=== PATIENT | female | born 1935 | race Caucasian/White ===

== ENCOUNTER 2020-06-28 16:29 | Inpatient (IN) | payer MEDICARE ==
[~2020-06-28] VITALS: Ht 157.4 cm; Wt 81.8 kg
[2020-06-28] MEDS ORDERED: TYLENOL325 M1 PO (16:54)
[2020-06-28] MEDS ORDERED: ALLOPURINOL300 MG PO (16:55)
[2020-06-28] MEDS ORDERED: ASPIRIN ADULT L81 M1 PO (16:56)
[2020-06-28] MEDS ORDERED: LIPITOR80 MG PO (16:56)
[2020-06-28] MEDS ORDERED: NATURE'S BLEND500 M5 PO (16:58)
[2020-06-28] MEDS ORDERED: B-121000 MCG PO (16:59)
[2020-06-28] MEDS ORDERED: DEPAKOTE SPRIN125 MG PO (17:00)
[2020-06-28] MEDS ORDERED: COLACE100 MG PO (17:01)
[2020-06-28] MEDS ORDERED: LOVENOX30 MG/0.3 SC (17:02)
[2020-06-28] MEDS ORDERED: FEROSUL325 MG PO (17:03)
[2020-06-28] MEDS ORDERED: APRESOLINE10 MG PO (17:04)
[2020-06-28] MEDS ORDERED: ZESTRIL,PRINIVIL5 MG PO (17:05)
[2020-06-28] MEDS ORDERED: MILK OF MA400 MG/51 PO (17:06)
[2020-06-28] MEDS ORDERED: ZOFRAN4 MG IV (17:07)
[2020-06-28] MEDS ORDERED: LOPRESSOR50 M1 PO (17:07)
[2020-06-28] MEDS ORDERED: PROTONIX40 MG PO (17:08)
[2020-06-28] MEDS ORDERED: POTASSIUM CHLO20 ME4 PO (17:09)
[2020-06-28] MEDS ORDERED: PHENERGAN25 MG/1 ML IV (17:11)
[2020-06-28] MEDS ORDERED: RISPERDAL0.5 MG PO (17:11)
[2020-06-28] MEDS ORDERED: GEODON20 M1 IM (17:12)
[2020-06-28 20:00] VITALS: BP 154/56
--- NOTE | 2020-06-28 20:10 | NUR ---
ARISTIDES DAVIES a 85 year old F admitted via stretcher from the [facility] as a voluntary admission PER LEGAL GUARDIAN, NALINI BEDOYA, LEGAL GUARDIAN Arrived on unit at 1999. ALLERGIES: PCN, LASIX. Vital signs are: [id number] 154/56 CONSENT RECEIVED FOR ALL ADMISSION FORMS FROM LEGAL GUARDIAN, NALINI BEDOYA PRIOR TO ADMISSION; Authorization For The Release of Medical Information, Clothing List, Consent to Voluntary Admission and Hospitalization, Consent and Release Forms/Receipt of Rights, Acknowledgement of Advance Directive Information, Behavioral Health Consent Form, and Informed Consent of Medications. Admitted under the services of Dr. KISHOR MCQUEEN,[facility]. A search was conducted and hazardous articles were removed. Client WAS DROWSY & SEDATED ON ADMISSION DUE TO BEING MEDICATED WITH [facility] PRIOR TO TRANSFER FROM [facility]. INFORMATION OBTAINED FROM CHART RECORDS MARIA E TORRES
[2020-06-28 21:08] VITALS: BP 154/56
--- NOTE | 2020-06-28 21:52 | NUR ---
DR GAMEZ NOTIFIED OF MEDICAL CONSULT. CONSULT TO BE UNDER DR TORRES
--- NOTE | 2020-06-28 22:11 | NUR ---
DR WHALEN ON UNIT TO SEE PT FOR MEDICAL MANAGEMENT
--- NOTE | 2020-06-29 01:09 | NUR ---
PT VERY DROWSY DURING ADMISSION. WAS MEDICATED WITH [facility] AT [facility] PRIOR TO TRANSFER. PT ALERT TO PERSON ONLY. SPEECH GARBLED & SOFT. INFORMATION OBTAINED FROM CHART NOTES, UNABLE TO COMPLETE GERIATRIC DEPRESSION SCALE & MINI MENTAL ASSESSMENT. PT IS EXCORIATED TO PERINEAL & ANAL AREA WELL ABDOMINAL FOLDS. ALSO BILATERALLY UNDER BREASTS. PT REFUSED TO HAVE PICTURES DONE TO ALL AREAS.
--- NOTE | 2020-06-29 05:48 | NUR ---
DR GAMEZ NOTIFIED THAT PTS HOME MEDS NEED ORDERED
--- NOTE | 2020-06-29 06:07 | NUR ---
PT SLEPT 3-4 HOURS INTERMITTENTLY OF INTERUPTED SLEEP.
[2020-06-29 06:31] LABS: HEMATOCRIT 41.6 % (37.0-47.0); MEAN CELL VOLUME 92.2 fl (81.0-99.0); MEAN CORPUSCULAR HGB 27.5 pg (27.0-31.0); MEAN CORPUSCULAR HGB CONC 29.8 g/dl (33.0-37.0); MEAN PLATELET VOLUME 10.2 fl (9.6-12.3); PLATELET COUNT AUTOMATED 362 10*3/uL (130-400); RED BLOOD COUNT 4.51 10*6/uL (4.10-5.10)
[2020-06-29 06:49] LABS: ALBUMIN 3.1 gm/dl (3.1-4.5); ALKALINE PHOSPHATASE 74 U/L (45-117); BUN 12 mg/dl (7-24); CHLORIDE 111 mmol/L (98-107); CHOLESTEROL 180 mg/dL (<200); CREATININE 0.82 mg/dL (0.55-1.02); HDL CHOLESTEROL 42 mg/dl (40-60); LDL CHOLESTEROL 105 mg/dL (9-159); POTASSIUM 4.2 mmol/L (3.5-5.1); SGOT/AST 12 IU/L (3-35); SGPT/ALT 18 U/L (12-78); SODIUM 141 mmol/L (136-145); TRIGLYCERIDES 167 mg/dl (<150); VLDL CHOLESTEROL 33 mg/dL (6-40)
--- NOTE | 2020-06-29 08:03 | NUR ---
PHYSICAL THERAPY PT screen received pt admitted for brief psychotic disorder. Please consult PT if pt has functional decline below baseline. Efrem Dickerson SPT Madisyn Loera PT
[2020-06-29 08:17] LABS: ATYPICAL LYMPHS 2 % (0-0); BASOPHILS 1 % (0-1); PLATELET SUFFICIENCY NORMAL (NORMAL); TOTAL CELLS COUNTED 100 #CELLS
--- NOTE | 2020-06-29 08:43 | NUR ---
DR WARD ON UNIT TO ASSESS PT.
--- NOTE | 2020-06-29 09:12 | NUR ---
PT C/O RIB PAIN, UNABLE TO ELABORATE WHERE EXACTLY IT HURTS OR RATE ON A PAIN SCALE. PT MEDICATION WITH TYLENOL 650 MG PO PRN, PER ORDERS WILL CONTINUE TO MONITOR.
--- NOTE | 2020-06-29 09:12 | NUR ---
PATIENT COMPLAINING OF RIB PAIN, 0 TO 10, STATED "REAL BAD" PATIENT GUARDING HER RIGHT SIDE. PRN TYLENOL 650MG PO GIVEN AT THIS TIME.
--- NOTE | 2020-06-29 09:50 | NUR ---
Treatment team meeting this AM with Virginia Dong, biomedical equipment support specialist, RN, home health outreach coordinator, ELIDA and environmental restoration planner. This patient came in from [facility]; Aparna MARRERO stating that [facility] is involved, I will reach out to Catie. At this time it was discussed this patient will be referred to [facility] and tentative discharge date is unknown.
--- NOTE | 2020-06-29 10:15 | NUR ---
NO FURTHER C/O PAIN NOTED.
--- NOTE | 2020-06-29 11:30 | NUR ---
Contacted Catie Hobson from [facility]. She is stating they have been involved with this patient in the past but they do not have anything open for her at this time. This patient's daughter Cristina Baker is her Guardian. I was asked to make a referral for this patient to [facility], but at this time the patient is too new and there is not enough information in the chart to fax for a referral, there is not even an H&P. Notified Sandra MARRERO
--- NOTE | 2020-06-29 11:52 | NUR ---
Family meeting held via the phone with pt's guardian/daughter Cristina Baker. Cristina spoke of pt's behaviors which caused pt's [facility] admission. Provided support to Cristina as she expressed anxiety about pt. Discussed discharge plan. Cristina stated that she is unsure if she wants pt to discharge to [facility] or to [place]. Cristina is planning on touring [place] today. Await return call from Cristina.
--- NOTE | 2020-06-29 14:20 | NUR ---
NO ADVERSE MOODS OR BEHAVIORS NOTED AT THIS TIME. PT ALERT TO PERSON, PLACE-KNOWS SHE IS IN THE HOSPITAL DIFFERENT FROM [place], UNSURE OF NAME, AND TIME, PERIODS OF INTERMITTENT CONFUSION NOTED. PT MED COMPLIANT WITHOUT DIFFICULTY, MED EDUCATION PROVIDED. PT CALM, MOOD IS STABLE. NO HALLUCINATIONS OR DELUSIONS NOTED AT THIS TIME. PT DENIES ANY SUICIDAL THOUGHTS AT THIS TIME. PT UP TO A WHEELCHAIR, REQUIRES STANDBY ASSIST FOR TRANSFERS. PT CONTINENT OF BOWEL AND BLADDER. PLAN IS TO MONITOR PT BEHAVIORS ON Q15 MIN SAFETY CHECKS, ENCOURAGE MED COMPLIANCE AND PROVIDE MED EDUCATION, ENCOURAGE GROUP PARTICIPATION AND SOCIALZIATION, PROVIDE EMOTIONAL SUPPORT AND 1:1 FOR PT TO VOICE FEELINGS.
--- NOTE | 2020-06-29 14:40 | NUR ---
PT SITTING IN HER ROOM AND WHEN APPROACHED BY STAFF STATED "THERE IS SOMEONE COMING IN MY TO STEAL BY $285. STAFF PRESENTED REALITY AND RE-ORINETED PT AND PROCEEDED TO TAKE HER TO THE DINING ROOM FOR GROUP. ONCE IN THE DINING ROOM PT STATED "IT WAS MY DAUGHTER WHO STOLE MY MONEY, I'M GOING TO SKIN HER ALIVE." STAFF PROVIDED EMOTIONAL SUPPORT AND 1:1 FOR PT TO VOICE FEELINGS, PT BECOMING ARUGEMENTATIVE WITH STAFF. PT IN GROUP ROOM AT THIS TIME.
--- NOTE | 2020-06-29 15:34 | NUR ---
PM GROUP PT WAS PRESENT FOR AFTERNOON GROUP THERAPY BUT REFUSED ANY ACTIVITY OFFERED. PT WAS CONFUSED BELIEVING THAT SHE "HAD TO GET UP TO THE APARTMENT. NALINI HAS HER $200 CHECK AND IF SHE CASHED IT SHE'S IN FOR IT!" PT COULD NOT BE REDIRECTED AND WAS GIVEN SPACE TO CALM HERSELF.
--- NOTE | 2020-06-29 19:43 | NUR ---
24 HR chart check completed.
--- NOTE | 2020-06-29 23:09 | NUR ---
PT SAT IN THE DINING ROOM THIS EVENING IN A WHEELCHAIR. SHE HAS BEEN CO-OPERATIVE. ALERT & ORIENTED TO PERSON, SOMEWHAT PLACE, "IN A HOSPITAL SOMEWHERE" & TIME. CONFUSION IS PRESENT AT TIMES WITH MEMORY GAPS NOTED. PLEASANT INTERACTIONS WITH STAFF. NO AGITATION OR BEHAVIORS. NO DELUSIONS VOICED. DID NOT APPEAR TO BE RESPONDING TO SENSORY DISTURBANCE. SHE HAS BEEN CALM & STATED THAT SHE WANTS TO GO HOME & GO TO BED. ATE SNACK. COMPLIANT WITH MEDICATIONS. 2 STAFF ASSISTS FOR TRANSFER TO BED.
--- NOTE | 2020-06-30 01:30 | NUR ---
URINE OBTAINED & SENT TO LAB
[2020-06-30 01:47] LABS: BILIRUBIN NEGATIVE; BLOOD NEGATIVE (NEGATIVE); CLARITY CLOUDY (CLEAR); COLOR YELLOW (YELLOW); GLUCOSE NEGATIVE; KETONE NEGATIVE; LEUKO ESTERASE 3+ (NEGATIVE); NITRITE NEGATIVE (NEGATIVE); PH 5.5 (4.5-8.0)
[2020-06-30 01:49] LABS: BACTERIA 1+; WBC TNTC wbc/hpf (0-5)
--- NOTE | 2020-06-30 03:18 | NUR ---
PT WAS SLEEPING @ 2200. SHE HAS BEEN UP X2 TO GO TO THE BATHROOM WITH STAFF ASSISTANCE. CONTINENT OF URINE. PT DID NOT WANT TO RETURN TO BED. VOICED FRUSTRATION REGARDING HER MOTHER. UPSET THAT SHE WONT COME TO SEE HER. STATED, "SHE CHOOSES THE BOTTLE OVER ME. HOW CAN SHE DO THAT? WELL WHEN SHE DOES COME I'M JUST GONNA TELL HER TO LEAVE & GO BACK TO HER BOTTLE." STATED HER FATHER & BROTHERS ARE ALL . PT CONTINUED TO VOICE FRUSTRATION ABOUT HER MOTHER. ACTIVELY ANXIOUS. UPSET & CRYING. MEDICATED WITH ATIVAN 1 MG PO @ 0252. MOVED PT TO GROUP ROOM ACROSS FROM NURSES STATION AND ASSISTED TO A COUCH PER HER REQUEST.
--- NOTE | 2020-06-30 03:46 | NUR ---
PT WANTING TO RETURN TO HER BED. STATED THERE ARE "TOO MANY SNAKES IN HERE" PT RETURNED TO HER BED.
--- NOTE | 2020-06-30 05:53 | NUR ---
ATIVAN HAS BEEN EFFECTIVE TO CALM PT. SHE HAS SLEPT FOR A TOTAL OF 3 1/2 HOURS
[2020-06-30 06:53] VITALS: BP 130/69
--- NOTE | 2020-06-30 13:17 | NUR ---
DR IGLESIAS ON UNIT TO ASSESS PATIENT, UPDATE PROVIDED.
--- NOTE | 2020-06-30 14:36 | NUR ---
P: PATIENT IS CONFUSED, IRRITABLE, ANXIOUS, DEPRESSED, HOPELESS/HELPLESS AND EXPERIENCING VISUAL HALLUCINATIONS. I: PROVIDE ONE ON ONE FOR EMOTIONAL SUPPORT, PROVIDE SPACE NEEDED. ENCOURAGE PATIENT TO PARTICIPATE IN GROUP ACTIVITIES AND SOCIALIZATION WITH PEERS, ALSO ENCOURAGE MEDICATION COMPLIANCE. R: PATIENT IS ALERT TO SELF ONLY AT THIS TIME. PATIENT IS CONFUSED AND UNAWARE OF WHERE SHE IS. SHE IS IRRITABLE, ANXIOUS, DEPRESSED, AND HOPELESS/HELPLESS. PATIENT INTERACTS WITH STAFF TO A POINT, UNTIL REALITY IS PRESENTED. PATIENT IS NOT EASILY REDIRECTED. PATIENT IS PREOCCUPIED WITH THOUGHTS OF LEAVING TO GO PAY HER BILLS. PATIENT STATES "MY LIGHTS WILL BE SHUT OFF I AM LEAVING HERE TO WALK TO [facility] THE [facility]ONEY". PATIENT IS ALSO HAVING VISUAL HALLUCINATIONS, SHE STATES SHE IS SEEING CATS. PATIENT IS A ONE ASSIST WITH ACTIVITIES OF DAILY LIVING. PATIENT AMBULATES VIA WHEELCHAIR. SET UP FOR MEALS. INTAKES ARE FAIR WITH ADEQUATE FLUID INTAKE. P: MONITOR PATIENTS MOOD/BEHAVIORS. Q 15 MINUTE SAFETY CHECKS MAINTAINED. MONITOR FOR HALLUCINATIONS. ENCOURAGE GROUP ACTIVITY AND SOCIALIZATION WITH PEERS.
[2020-06-30 20:00] VITALS: BP 132/63
--- NOTE | 2020-06-30 23:01 | NUR ---
P-ISOLATIVE, CONFUSION, PREOCCUPIED I-REDIRECTION WITH 1:1 THERAPEUTIC INTERVENTIONS AND PRESENT REALITY. EDUCATE AND ENCOURAGE MEDICATION COMPLIANCE R-PATIENT MEDICATION COMPLIANT AT HS. PATIENT PROVIDED NOURSISHMENT AND FLUIDS AT HS. PATIENT INTERACTIVE IN DINING AREA AND TALKING WITH PEERS. PATIENT ATTEMPTING TO HAVE CONVERSATIONS WITH PEERS AND NURSING STAFF BUT PATIENT USING INAPPROPRIATE CONTENT TO CONVERSATION. PATIENT PREOCCUPIED WITH OTHER PATIENTS IN DINING AREA AND CONCERNED WITH WHAT NURSING STAFF WAS DOING IN DINING ROOM. PATIENT STATING "I DON'T FEEL GOOD". PATIENT WANTING TO WATCH TELEVISION IN DINING AREA UNTIL READY FOR BED. PATIENT WITH NO HOMICIDAL OR SUICIDAL IDEATIONS. P-CONTINUE TO ENCOURAGE MEDICATION COMPLIANCE, CONTINUE TO PRESENT REALITY, ENCOURAGE GROUP THERAPY WHILE AWAKE
--- NOTE | 2020-07-01 00:29 | NUR ---
PATIENT NOT WANTING TO STAY UP AT THIS TIME. PATIENT HALLUCINATING STATING "THERE ARE SNAKES OVER THERE". PATIENT ALSO SEEN TALKING TO UNSEEN OTHERS IN QUIET ROOM. PATIENT STATING "I JUST DON'T FEEL GOOD RIGHT NOW, I JUST NEED TO GO OUTSIDE TO GET AIR". MULTIPLE ATTEMPTS TO REDIRECT PATIENT AND REMIND PATIENT THAT SHE IS IN A HOSPITAL. PATIENT REDIRECTED WITH DIFFICULTY AT TIMES.
--- NOTE | 2020-07-01 02:15 | NUR ---
PATIENT CLIMBING OUT OF BED. PATIENT PULLING DOWN PANTS ON SIDE OF BED. PATIENT AGITATED WHEN ATTEMPTING TO PROVIDE CARE. PATIENT YELLING OUT "NALINI". PATIENT REDIRECTED AND PROVIDED A QUIET AREA TO DECREASE STIMULI. PATIENT [facility] AT THIS TIME
--- NOTE | 2020-07-01 03:35 | NUR ---
PATIENT MEDICATED WITH ATIVAN 1MG PO WITH SOMEWHAT EFFECTIVE RESULTS. PATIENT YELLING OUT FOR HER MOM AND DAD. ATTEMPTS TO REDIRECT PATIENT FROM YELLING OUT INEFFECTIVE. PATIENT STATING "I DON'T CARE WHO I WAKE UP". PATIENT ATTEMPTING TO GET UP ON OWN AND UNSTEADY. PATIENT AGITATED AND ARGUMENTATIVE WITH STAFF. ATIVAN SOMEWHAT EFFECTIVE AT THIS TIME. PATIENT TOILETED WITH ASSIST X 2-3.
--- NOTE | 2020-07-01 05:50 | NUR ---
PATIENT SLEPT 1-2 HOURS OF INTERRUPTED SLEEP THROUGHOUT SHIFT. Q 15 MINUTE CHECKS MAINTAINED. 24 HR chart check completed.
[2020-07-01 07:49] VITALS: BP 157/53
--- NOTE | 2020-07-01 09:31 | NUR ---
DR IGLESIAS ON UNIT TO ASSESS PT, UPDATE PROVIDED.
--- NOTE | 2020-07-01 14:51 | NUR ---
P: PT YELLING OUT INTERMITTENTLY. PT IRRITABLE WITH STAFF. PT OBSERVED TO BE RESPONDING TO UNSEEN OTHERS. PT ARUGEMNTATIVE AND ACCUSATORY WITH STAFF DURING CARE, STATING "WHY DID YOU BRING ME HERE?, JUST TO MISTREAT ME." I: PROVIDE EMOTIONAL SUPPORT AND 1:1 FOR PT TO VOICE FEELINGS, PROVIDE LOW STIMULATION ENVIRONMENT FOR PT TO CALM, PROVIDE EMOTIONAL SUPPORT AND 1:1 FOR PT TO VOICE FEELINGS, PROVIDE DIVERSIONAL ACTIVITIES R: PT ALERT TO PERSON, WHEN ASKED WHERE SHE WAS PT STATED "HERE", PT IS AWARE THE YEAR IS 2019, CONFUSION AND SHORT TERM MEMORY DEFICITS NOTED PER PT BASELINE. PT CALM, MOOD REMAINS IRRITABLE. PT CONTINUES TO ACCUSE STAFF, 2-3 STAFF PRESENT DURING CARE. PT UNRECEPTIVE TO PRESENTATION OF REALITY AND RE-ORIENTATION. PT DENIES ANY SUICIDAL THOUGHTS. PT UP TO A GERICHAIR AT THIS TIME, REQUIRING 1-2 STAFF ASSIST FOR TRANSFERS. P: MONITOR PT BEHAVIORS ON Q15 MIN SAFETY CHECKS, ENCOURAGE MED COMPLIANCE AND PROVIDE MED EDUCATION, PROVIDE DIVERSIONAL ACTIVITIES, PROVIDE EMOTIONAL SUPPORT AND 1:1 FOR PT TO VOICE FEELINGS, PRESENT REALITY AND RE-ORIENT NEEDED.
[2020-07-01 19:34] VITALS: BP 150/53
--- NOTE | 2020-07-01 21:52 | NUR ---
P-ISOLATIVE, CONFUSION I-REDIRECTION WITH 1:1 THERAPEUTIC INTERVENTIONS AND PRESENT REALITY. EDUCATE AND ENCOURAGE MEDICATION COMPLIANCE R-PATIENT MEDICATION COMPLIANT AT HS. PATIENT PROVIDED NOURSISHMENT AND FLUIDS AT HS. PATIENT INTERACTIVE IN DINING AREA AND TALKING WITH PEERS. PATIENT ATTEMPTING TO HAVE CONVERSATIONS WITH PEERS AND NURSING. PATIENT WITH NO HOMICIDAL OR SUICIDAL IDEATIONS. PATIENT WITH NO HALLUCINATIONS OR DELUSIONS. P-CONTINUE TO ENCOURAGE MEDICATION COMPLIANCE, CONTINUE TO PRESENT REALITY, ENCOURAGE GROUP THERAPY WHILE AWAKE
--- NOTE | 2020-07-02 05:58 | NUR ---
PATIENT SLEPT 8 HOURS OF UNINTERRUPTED SLEEP THROUGHOUT SHIFT. Q 15 MINUTE CHECKS MAINTAINED. 24 HR chart check completed.
[2020-07-02 07:55] VITALS: BP 143/59
--- NOTE | 2020-07-02 08:30 | NUR ---
Treatment Plan meeting was held this a.m. with Dr. Dickson, CHHAYA Coleman, RN, AT, NURSE'S AIDES TEACHER-S and Instrumentation Manager in attendance. Plan for discharge Next Week. Pt. most likely will require Placement. Will follow with family for Choice of Facilities.
--- NOTE | 2020-07-02 11:04 | NUR ---
DR IGLESIAS ON UNIT TO ASSESS PT. UPDATE PROVIDED.
--- NOTE | 2020-07-02 11:17 | NUR ---
Spoke with pt's daughter/guardian Cristina Rosalesro. Cristina stated that she has not yet made a decision about a [facility] for pt. She requested that this short story writer call her tomorrow to further discuss discharge plan.
--- NOTE | 2020-07-02 11:31 | NUR ---
AM GROUP PT WAS PRESENT FOR MORNING GROUP THERAPY AND PARTICIPATED BY SOCIALIZING WITH NURSING STUDENTS. PT WAS IN GOOD SPIRITS AND EXHIBITED NO ADVERSE BEHAVIORS WHILE IN GROUP.
--- NOTE | 2020-07-02 11:47 | NUR ---
PASRR submitted to prepare for discharge needs.
--- NOTE | 2020-07-02 15:34 | NUR ---
PM GROUP PT ATTENDED AFTERNOON GROUP THERAPY BUT CHOSE NOT TO PARTICIPATE STATING, "MY ARMS HURT TOO MUCH." PT WAS CONTENT TO WATCH PEERS AND NURSING STUDENTS PLAY YATZEE. PT EXHIBITED NO ADVERSE BEHAVIORS WHILE IN GROUP.
--- NOTE | 2020-07-02 16:12 | NUR ---
[facility] CALLED IN FOR ADDITIONAL INFORMATION, INFO PROVIDED.
--- NOTE | 2020-07-02 16:13 | NUR ---
Referral faxed to [facility] Attn: Lali.
--- NOTE | 2020-07-02 17:45 | NUR ---
IV REMOVED AT THIS TIME. PT TOLERATED WELL. PRESSURE DRESSING APPLIED.
--- NOTE | 2020-07-02 18:08 | NUR ---
P: PT ISOLATIVE TO SELF AT TIMES THROUGHTOUT THE DAY. PT IRRITABLE WITH STAFF. I: PROVIDE EMOTIONAL SUPPORT AND 1:1 FOR PT TO VOICE FEELINGS, ENCOURAGE MED COMPLIANCE AND PROVIDE MED EDUCATION, ENCOURAGE GROUP PARTICIPATION AND SOCIALIZATION R: PT ALERT TO PERSON AND PLACE ONLY. PT KNOWS SHE IS THE HOSPITAL BUT UNSURE OF WHERE. PT MED COMPLIANT WITHOUT DIFFICULTY, MED EDUCATION PROVIDED. PT CALM, REMAINS IRRITABLE AT TIMES. PT MINIMALLY PARTICIPATED IN GROUP THROUGHOUT THE DAY. NO HALLUCINATIONS OR DELUSIONS NOTED AT THIS TIME. PT DENIES ANY SUICIDAL THOUGHTS. PT UP TO A WHEELCHAIR, REQUIRES A 2 STAFF ASSIST FOR TRANSFERS AND CARE. PT CONTINENT OF BOWEL AND BLADDER, EPISODES OF INCONTINENCE NOTED, CARE PROVIDED NEEDED. P: PLAN IS TO MONITOR PT BEHAVIORS ON Q15 MIN SAFETY CHECKS, ENCOURAGE MED COMPLIANCE AND PROVIDE MED EDUCATION, ENCOURAGE GROUP PARTICIPATION AND SOCIALIZATION, PROVIDE EMOTIONAL SUPPORT AND 1:1 FOR PT TO VOICE FEELINGS.
[2020-07-02 19:04] VITALS: BP 141/64
--- NOTE | 2020-07-02 23:59 | NUR ---
PP--ISOLATIVE AT TIMES, LABILE MOOD I--REVIEWED MEDICATION DISCUSSED THE DAY. SNACK AND FLUIDS PROVIDED BY MENTAL HEALTH WORKER. R--OH WE HAD A GREAT DAY. (RUSHING SPEECH AND SLURRING PART OF IT) DISCUSS SEEING A DOG AND CAT GO OUT THE DOOR AND TO THE TUNNE. DO YOU WANT TO HERE A JOKE? INAPPROPRIATE JOKE GIVEN. REDIRECTED WELL. P--MONITOR FOR CHANGES IN MOOD/BEHAVIOR AND Q 15 MINS AND PRN FOR SAFETY
--- NOTE | 2020-07-03 05:03 | NUR ---
SLEPT WELL PAST 2230PM 24 HR chart check completed.
[2020-07-03 07:44] VITALS: BP 118/62
--- NOTE | 2020-07-03 08:00 | NUR ---
Discharge Plans discussed Prior to Manager R D Arrival to the Unit. Pt. will require Placement. Referral faxed to [facility] Thursday. Will Follow with Facility today.
--- NOTE | 2020-07-03 10:31 | NUR ---
DR IGLESIAS ON UNIT TO ASSESS PT, UPDATE PROVIDED.
--- NOTE | 2020-07-03 11:41 | NUR ---
AM GROUP PT ATTENDED MORNING GROUP THERAPY BUT CHOOSES NOT TO PARTICIPATE IN ANY ACTIVITY OFFERED. PT IS CONTENT TO SIT AND OBSERVE. PT CONVERSES WITH PEERS AND THIS DEVELOPMENT COACH APPROPRIATELY BUT WITH CONFUSION TO WHERE SHE IS AND SITUATION. PT EXHIBITED NO ADVERSE BEHAVIORS WHILE IN GROUP.
--- NOTE | 2020-07-03 12:33 | NUR ---
P: PT ISOLATIVE TO SELF AT TIMES THROUGH OUT THE DAY. PT REFUSES TO PARTICIPATE IN GROUP/ACTIVITES. I: PROVIDE EMOTIONAL SUPPORT AND 1:1 FOR PT TO VOICE FEELINGS, ENCOURAGE MED COMPLIANCE AND PROVIDE MED EDUCATION, ENCOURAGE GROUP PARTICIPATION AND SOCIALIZATION R: PT ALERT TO PERSON, KNOWS SHE IS IN THE HOSPITAL, BUT UNSURE OF WHERE OR WHY, AND KNOWS THE YEAR BUT NOT THE DATE. PT MED COMPLIANT WITHOUT DIFFICULTY, MED EDUCATION PROVIDED. PT CALM, MOOD IS STABLE. PT DENIES FEELING SAD, DEPRESSED OR ANXIOUS. PT CONTINUES TO REFUSE TO PARTICIPATE IN GROUPS/ACTIVITIES. PT DENIES ANY HALLUCINATIONS OR DELUSIONS, NO OVERT S/S NOTED. PT DENIES ANY SUICIDAL THOUGHTS. PT UP TO A WHEELCHAIR, REQUIRES 1 STAFF ASSIST FOR TRANSFERS AND CARE. PT CONTINENT OF BOWEL AND BLADDER. P: MONITOR PT BEHAVIORS ON Q15 MIN SAFETY CHECKS, ENCOURAGE MED COMPLIANCE AND PROVIDE MED EDUCATION, ENCOURAGE GROUP PARTICIPATION AND SOCIALIZATION, PROVIDE EMOTIONAL SUPPORT AND 1:1 FOR PT TO VOICE FEELINGS.
--- NOTE | 2020-07-03 15:42 | NUR ---
PM GROUP PT ATTENDED AFTERNOON GROUP THERAPY AND PARTICIPATED BY COLORING AND SOCIALIZING. PT IS PLEASANTLY CONFUSED BUT USES INAPPROPRIATE LANGUAGE/JOKES. PT MEANS NO HARM BUT DOESN'T UNDERSTAND THAT IT MAY BE OFFENSIVE TO OTHERS. PT EXPRESSED NO PARANOIA OR HALLUCINATIONS WHILE IN GROUP.
[2020-07-03 19:55] VITALS: BP 115/85
--- NOTE | 2020-07-03 21:04 | NUR ---
24 HR chart check completed.
--- NOTE | 2020-07-03 23:44 | NUR ---
P-CONFUSION, MEMORY GAPS I-PROVIDE EMOTIONAL SUPPORT, REORIENT NEEDED, ADMINISTER MEDICATIONS, MONITOR SLEEP R-PT SAT IN THE DINING ROOM THIS EVENING IN A WHEELCHAIR. SHE HAS BEEN SOCIALIZING APPROPIATELY TO A SELECT FEMALE PEER. PLEASANT INTERACTIONS WITH STAFF & PEERS. CO-OPERATIVE. ALERT & ORIENTED TO PERSON, SOMEWHAT PLACE, "IN A HOSPITAL SOMEWHERE I GUESS." CONFUSION IS PRESENT WITH MEMORY GAPS NOTED. NO AGITATION OR BEHAVIORS. NO DELUSIONS VOICED. NO SENSORY DISTURBANCE. ATE SNACK. COMPLIANT WITH MEDICATIONS. 2 STAFF ASSISTS FOR TRANSFER TO BED. SHE DID REQUEST & WAS MEDICATED WITH 2 TYLENOL FOR C/O RIGHT HAND PAIN. RATED 4/10 DID STATE IT HELPS A LITTLE BIT. P-CONTINUE TO MONITOR.
--- NOTE | 2020-07-04 00:43 | NUR ---
PT AWAKE AT THIS TIME. SITTING ON THE EDGE OF THE BED. UPSET & ANXIOUS. STATED SHE WOKE UP & THOUGHT SHE SAW A MAN IN HER ROOM. REASSURANCE PROVIDED. INFORMED PT THAT STAFF MAKES FREQUENT ROUNDS TO CHECK ON THEM & SHE STATED UNDERSTANDING. CALMED WITH VERBAL INTERVENTION.
--- NOTE | 2020-07-04 05:36 | NUR ---
PT HAS HAD INTERMITTENT SLEEP TOTALING APPX 4 HOURS SLEEP ALTOGETHER
[2020-07-04 07:53] VITALS: BP 153/69
--- NOTE | 2020-07-04 08:30 | NUR ---
Treatment Plan meeting was held this a.m. with Dr. Dickson via telephone, SUPERVISOR [employer] [place], RN, AT, POST TENSIONING IRONWORKER HELPER-S and Merchandiser Retail Representative in attendance. Plan for discharge Next week. Pt. came to [facility] from Home. Requires Placement. Accepted at [facility]. Daughter would like referral also sent to [facility].
--- NOTE | 2020-07-04 09:44 | NUR ---
Spoke with pt's daughter Cristina Baker about pt's discharge plan. Cristina would like a referral to [facility]. If pt is not accepted there, Cristina's second choice is [facility]. Notified production planner of this.
--- NOTE | 2020-07-04 10:43 | NUR ---
DR. IGLESIAS ON UNIT TO ASSESS PT, NOTIFIED OF C/O LOWER ABDOMINAL PAIN PER DR. KELSIE MOSES.
--- NOTE | 2020-07-04 11:33 | NUR ---
DR. IGLESIAS ON UNIT TO ASSESS PT, UPDATE PROVIDED.
--- NOTE | 2020-07-04 11:39 | NUR ---
AM GROUP PT WAS PRESENT FOR MORNING GROUP THERAPY AND PARTICIPATED BY COLORING AND SOCIALIZING WITH PEERS. PT WAS CALM AND EXPRESSED NO DELUSIONS OR AGITATION WHILE IN GROUP.
--- NOTE | 2020-07-04 12:10 | NUR ---
Clinical Updates faxed to [facility] Attn: Lali and Referral Faxed to [facility] at family request.
--- NOTE | 2020-07-04 15:50 | NUR ---
P-DEMANDING, CONFUSED. SHORT-TERM DEFICITS APPARENT. I-PT REDIRECTED, REORIENTED, PROVIDED 1:1 EMOTIONAL SUPPORT NEEDED. MEDICATION ADMINISTERED ORDERED. R-PT REDIRECTABLE, SOMEWHAT AGITATED STATING, "THESE DOORS ARE LOCKED MY FOOT." ACCEPTED REORIENTATION OF PLACE. MEDICATION COMPLIANT. P-WILL CONTINUE TO REOPRIENT APPROPRIATE, REDIRECT, AND PROVIDE EMOTIONAL SUPPORT NEEDED. CONTINUE CURRENT TREATMENT PLAN. WILL CONTINUE TO MONITOR Q15 MIN PER POLICY FOR SAFETY.
--- NOTE | 2020-07-04 15:54 | NUR ---
PM GROUP PT WAS PRESENT FOR AFTERNOON GROUP THERAPY SITTING AT THE BACK OF THE ROOM IN A COMFY CHAIR SLEEPING. PT WOKE A FEW TIMES BUT WENT RIGHT BACK TO SLEEP.
--- NOTE | 2020-07-04 16:19 | NUR ---
Received Word from Masha Dickson at [facility] that Pt. is not appropriate for their Facility.
--- NOTE | 2020-07-04 19:50 | NUR ---
24 HR chart check completed.
[2020-07-04 20:00] VITALS: BP 126/50
--- NOTE | 2020-07-04 21:01 | NUR ---
P-CONFUSION, MEMORY GAPS I-PROVIDE EMOTIONAL SUPPORT, REORIENT NEEDED, ADMINISTER MEDICATIONS, MONITOR SLEEP R-PT SAT IN THE DINING ROOM THIS EVENING IN A WHEELCHAIR. SOCIALIZING APPROPIATELY TO A SELECT PEER. PLEASANT WITH STAFF. ALERT & ORIENTED TO PERSON, SOMEWHAT PLACE, IN A HOSPITAL, YEAR IS 2019 & LISE IS THE PRESIDENT. MEMORY GAPS NOTED. NO AGITATION OR BEHAVIORS. NO DELUSIONS VOICED. NO SENSORY DISTURBANCE. ATE SNACK. COMPLIANT WITH MEDICATIONS. 2 STAFF ASSISTS FOR TRANSFER TO BED. DID STATE IT HELPS A LITTLE BIT. P-CONTINUE TO MONITOR.
--- NOTE | 2020-07-05 00:27 | NUR ---
PT HAS BEEN RESTING IN BED. WHEN STAFF WENT IN HER ROOM TO DO ROUTINE ROUNDS, SHE SCREAMED OUT LOUD. STATED THAT SHE WAS SCARED & WANTED TO GO OUTSIDE & GET SOME AIR & GET OUT OF HERE & GO HOME. UNRECEPTIVE TO REALITY PRESENTATION. ARGUMENTATIVE & SARCASTIC. MEDICATED WITH ATIVAN 1 MG PO @ 0004
--- NOTE | 2020-07-05 05:30 | NUR ---
ATIVAN HAS BEEN EFFECTIVE & PT HAS SLEPT PAST 0145 FOR APPROX 3 HOURS
[2020-07-05 07:49] VITALS: BP 130/56
--- NOTE | 2020-07-05 08:32 | NUR ---
PRN TYLENOL 650MG GIVEN PER ORDERS FOR C/O LOW BACK PAIN RATED 5/10.
--- NOTE | 2020-07-05 09:07 | NUR ---
S[place]IN [place], LOSS PREVENTION ASSOCIATE UP ON UNIT TO ASSESS PT, UPDATE PROVIDED.
--- NOTE | 2020-07-05 09:32 | NUR ---
PRN TYLENOL EFFETIVE PAIN RATED 0/10.
--- NOTE | 2020-07-05 10:52 | NUR ---
Treatment Plan meeting was held this a.m. with Dr. Dickson, RN, AT and Endband Sizer. Plan for discharge Next Week. Pt. is accepted at [facility].
--- NOTE | 2020-07-05 11:40 | NUR ---
AM GROUP PT WAS PRESENT FOR MORNING GROUP THERAPY SITTING IN A WHEELCHAIR NAPPING. PT IS OFFERED MANY ACTIVITIES BUT DECLINES ALL. PT IS VERY CONFUSED AND ANGRY WITH HER DAUGHTER, NALINI.
--- NOTE | 2020-07-05 14:04 | NUR ---
PT ALERT AND ORIENTED X4 WITH INTERMITTENT CONFUSION. UP IN W/C ATTENDING GROUP THERAPY AT THIS TIME. MEDICAITON COMPLIANT. MOOD STABLE. DENIES AH/VH AND SI/HI OR BEING DEPRESSED. MEDICATED WITH TYLENOL FOR PAIN. MEDICATION COMPLIANT. Q15 MIN CHECKS. 1 ASSIST WITH ADLS. CONTINENT OF BOWEL AND BLADDER. UP FOR MEALS ADEQUATE INTAKE AND FLUIDS. INTERACTIVE WITH STAFF AND OTHER PTS. PARTICIPATES IN GROUP. WILL CONTINUE TO MONITOR FOR AGGRESSION, PARANOIA, AND BEING ACUSATORY OF STAFF DURING CARE. WILL PROVIDE 1:1, REDIRECTION, REORIENTATION AND ENCOURAGE GROUP PARTICIPATION.
--- NOTE | 2020-07-05 14:46 | NUR ---
Pt was pleasant this AM during a group discussion about the benefits of having pets. Pt shared about her love of dogs and reminisced about dogs that she once had. Pt was interactive with her peers. Slight confusion was noted in pt at times during her conversation.
--- NOTE | 2020-07-05 15:37 | NUR ---
PM GROUP PT WAS PRESENT FOR AFTERNOON GROUP THERAPY AND PARTICIPATED BY SOCIALIZING AND LISTENING TO MUSIC. PT IS PLEASANTLY CONFUSED THIS AFTERNOON BUT EXHIBITED NO AGITATION OR AGGRESSION WHILE IN GROUP.
--- NOTE | 2020-07-05 16:20 | NUR ---
Shift chart check completed.
[2020-07-05 19:31] VITALS: BP 136/58
--- NOTE | 2020-07-05 23:37 | NUR ---
P-ISOLATIVE, CONFUSION I-REDIRECTION WITH 1:1 THERAPEUTIC INTERVENTIONS AND PRESENT REALITY. EDUCATE AND ENCOURAGE MEDICATION COMPLIANCE R-PATIENT MEDICATION COMPLIANT AT HS. PATIENT REFUSED NOURISHMENT BUT FLUIDS AT HS. PATIENT INTERACTIVE IN DINING AREA AND TALKING WITH PEERS AND NURSING STAFF. PATIENT WITH NO HOMICIDAL OR SUICIDAL IDEATIONS. PATIENT WITH NO HALLUCINATIONS OR DELUSIONS. P-CONTINUE TO ENCOURAGE MEDICATION COMPLIANCE, CONTINUE TO PRESENT REALITY, ENCOURAGE GROUP THERAPY WHILE AWAKE
--- NOTE | 2020-07-06 06:27 | NUR ---
PATIENT SLEPT 7-8 HOURS OF UNINTERRUPTED SLEEP THROUGHOUT SHIFT. Q 15 MINUTE CHECKS MAINTAINED. 24 HR chart check completed.
--- NOTE | 2020-07-06 07:40 | NUR ---
Patient eating breakfast in dining room with peers. Respirations easy and regular. Vital signs stable. No overt distress. NICKI ORNELAS
[2020-07-06 07:43] VITALS: BP 115/56
--- NOTE | 2020-07-06 08:30 | NUR ---
Treatment Plan meeting was held this a.m. with Dr. Dickson via telephone, CHHAYA Coleman RN, FLAME CUTTING SUPERVISOR-S and Ground Instructor Basic in attendance. Plan for discharge Next week. Pt. accepted at [facility].
--- NOTE | 2020-07-06 12:15 | NUR ---
SACHIN HILL NP ON UNIT TO ASSESS PT.
--- NOTE | 2020-07-06 14:03 | NUR ---
Spoke with Lali Baeza at [facility]. Pt. will need to discharge Next week prior to due to Bed Hold. Clinical Updates faxed to facility.
--- NOTE | 2020-07-06 16:22 | NUR ---
Shift chart check completed.
--- NOTE | 2020-07-06 19:08 | NUR ---
PT ALERT AND ORIENTED TO PERSON, PLACE AND TIME. MOOD STABLE. UP FOR MEALS AND ACTIVITIES. NO BEHAVIORS NOTED.
[2020-07-06 20:00] VITALS: BP 143/51
--- NOTE | 2020-07-06 23:42 | NUR ---
P-ISOLATIVE, CONFUSION, PREOCCUPIED I-REDIRECTION WITH 1:1 THERAPEUTIC INTERVENTIONS AND PRESENT REALITY. EDUCATE AND ENCOURAGE MEDICATION COMPLIANCE R-PATIENT MEDICATION COMPLIANT AT HS. PATIENT PROVIDED NOURISHMENT AND FLUIDS AT HS. PATIENT MINIMAL INTERACTION IN DINING AREA WITH PEERS AND NURSING STAFF. PATIENT PREOCCUPIED WITH MEDICATIONS AT HS. MEDICATION EDUCATION PROVIDED TO PATIENT. PATIENT WITH NO HOMICIDAL OR SUICIDAL IDEATIONS. PATIENT WITH NO HALLUCINATIONS OR DELUSIONS. P-CONTINUE TO ENCOURAGE MEDICATION COMPLIANCE, CONTINUE TO PRESENT REALITY, ENCOURAGE GROUP THERAPY WHILE AWAKE
--- NOTE | 2020-07-07 06:46 | NUR ---
PATIENT SLEPT 6 HOURS OF UNINTERRUPTED SLEEP THROUGHOUT SHIFT. Q 15 MINUTE CHECKS MAINTAINED. 24 HR chart check completed.
[2020-07-07 08:25] VITALS: BP 151/51
--- NOTE | 2020-07-07 08:54 | NUR ---
Edward JOSE R-FELIX on unit to see patient at this time.
--- NOTE | 2020-07-07 15:27 | NUR ---
P- Pleasantly confused, slightly preoccupied with medications, memory gaps noted. I- Orientation, mood and behaviors assessed. Assessed pt for SI/HI, intent or plan. Assessed pt for s/s hallucinations, paranoia and/or delusions. Medications administered as per physician's orders. Assistance with ADL care provided as needed. Encouraged pt to attend and participate in collado milieu groups & activities. R- Pt is alert and oriented to person, approximate place and year. Mild confusion and memory gaps noted. Mood appears stable with appropriate affect. Speech is WNL and coherent, able to make needs known without difficulty. Pt denies SI/HI, intent or plan. Pt denies hallucinations, no response to internal stimuli noted. No paranoia or delusions noted. Pt remains slightly preoccupied with her medications. Redirection and education provided regarding medications and recieved well by pt. Pt is calm, pleasant and cooperative. No aggressive behaviors. No distress noted. P- Plan to continue current treatment, provide appropriate reorientation and redirection as needed. Continue to encourage medication compliance as well as group attendance and participation.
[2020-07-07 20:00] VITALS: BP 136/76
--- NOTE | 2020-07-07 23:06 | NUR ---
P-CONFUSION, MEMORY GAPS I-PROVIDE EMOTIONAL SUPPORT, REORIENT NEEDED, ADMINISTER MEDICATIONS, MONITOR SLEEP R-PT SAT IN THE DINING ROOM THIS EVENING IN A WHEELCHAIR. PLEASANT INTERACTIONS. ALERT & ORIENTED TO PERSON, STATES SHE IS IN A HOSPITAL SOMEWHERE. YEAR IS 2019 & LISE IS THE PRESIDENT. MEMORY GAPS NOTED. NO AGITATION OR BEHAVIORS. NO DELUSIONS VOICED. NO SENSORY DISTURBANCE. ATE SNACK. COMPLIANT WITH MEDICATIONS. 2 STAFF ASSISTS FOR TRANSFER TO BED. P-CONTINUE TO MONITOR.
--- NOTE | 2020-07-08 00:23 | NUR ---
24 HR chart check completed.
--- NOTE | 2020-07-08 02:15 | NUR ---
RESTLESS, TALKING ABOUT NOT BEING DRUNK, ORIENTED TO PERSON, PLACE, UP TO KIM CHAIR AND BROUGHT DOWN TO QUIET ROOM. YELLING STOPPED AFTER GETTING HER IN CHAIR. WILL CONTINUE TO MONITOR FOR CHANGES IN MOOD/BEHAVIOR
--- NOTE | 2020-07-08 05:40 | NUR ---
PT HAS BEEN RESTLESS & SLEPT ONLY 3 & A HALF HOURS
[2020-07-08 07:22] VITALS: BP 159/56
--- NOTE | 2020-07-08 18:11 | NUR ---
PT TEARFUL AND YELLING OUT. THIS NURSE ASKED PT WHAT WAS WRONG AND SHE SAID THAT SHE DIDNT FEEL WELL. VS WNL. PT ASKED FOR SOUP AND BREAD AND THIS NURSE CALLED TO ORDER IT. PT CONTINUED YELLING OUT AND STATING SHE IS GOING FOR A WALK. THIS NURSE EXPLAINED TO PT SHE WAS UNSTEADY AND COULD POTENTIALLY FALL. PRN ATIVAN GIVEN TO PT TO CALM PT DOWN. WILL MONITOR EFFECTIVENESS OF MEDICATION.
[2020-07-08 20:00] VITALS: BP 148/65
--- NOTE | 2020-07-09 01:12 | NUR ---
24 HR chart check completed.
--- NOTE | 2020-07-09 02:34 | NUR ---
P-CONFUSION, MEMORY GAPS I-PROVIDE EMOTIONAL SUPPORT, REORIENT NEEDED, ADMINISTER MEDICATIONS, MONITOR SLEEP R-ALERT & ORIENTED TO PERSON, STATES SHE IS IN A HOSPITAL. DOESNT KNOW THE YEAR OR THE PRESIDENT. STATED "I DON'T CARE EITHER". DISPLAYED SOME ATTENTION SEEKING BEHAVIOR THIS EVENING. INFORMED STAFF THAT SHE WAS GOING TO GET UP & GO TO THE BATHROOM BY HERSELF DESPITE REDIRECTION. HEARD TALKING TO HER SELF IN HER ROOM & LAUGHING AFTER NAMING SOMEONE A "KNUCKLEHEAD". MEMORY GAPS NOTED. COMPLIANT WITH MEDICATIONS. 1 STAFF ASSIST FOR TRANSFER TO BED & TOILETING P-CONTINUE TO MONITOR.
--- NOTE | 2020-07-09 06:50 | NUR ---
PT HAS SLEPT PAST 2300 WITH 2 BRIEF TO GO TO THE BATHROOM. CONTINENT OF URINE
[2020-07-09 08:00] VITALS: BP 128/72
--- NOTE | 2020-07-09 08:00 | NUR ---
Patient eating breakfast in dining area with peers, with no c/o discomfort. Respirations easy and regular. Vital signs stable. No overt distress. MADY HILARIO
--- NOTE | 2020-07-09 08:30 | NUR ---
DR. WARD ON UNIT TO ASSESS PATIENT.
--- NOTE | 2020-07-09 09:00 | NUR ---
Treatment Plan meeting was held this a.m. with Dr. Dickson, CHHAYA Coleman, RN, AT, CONSTRUCTION SPECIALIST-S and Envelope Addresser in attendance. Plan for discharge Thursday. Pt. is accepted at [facility].
--- NOTE | 2020-07-09 12:52 | NUR ---
Spoke with Lali Baeza at [facility]. Provided with updates and discharge Plan for Thursday. Clinical Updates faxed to facility .
--- NOTE | 2020-07-09 13:05 | NUR ---
pt is pleasant and fully cooperate with assessment this shift. pt showered this morning x 2 assist. pt states she slept "so good" and appetite is good per records. pt smiling, laughing with staff, observed to be getting her nails painted. pt talking about activities of interest such as shopping and drinking coffee. pt also recalls speaking with PCP regarding reddened areas under breasts, states "my doctor told me to put good old flour under there and boy did it help!" pt has been continent of bowel and bladder, noted to have extra large BM this shift. pt offers no complaints at this time. pt is sitting in wheel chair in dining room with peers watching a movie. q15 min monitoring for safety continues.
--- NOTE | 2020-07-09 15:39 | NUR ---
PM GROUP PT WAS PRESENT FOR AFTERNOON GROUP THERAPY SITTING IN A WHEELCHAIR SLEEPING. PT WOKE ONCE AND ASKED FOR A PIECE OF CANDY AND THEN WENT RIGHT BACK TO SLEEP
--- NOTE | 2020-07-09 18:38 | NUR ---
Shift chart check completed.
--- NOTE | 2020-07-09 19:48 | NUR ---
24 HR chart check completed.
[2020-07-09 20:00] VITALS: BP 158/68
--- NOTE | 2020-07-09 21:54 | NUR ---
P-CONFUSION, MEMORY GAPS I-PROVIDE EMOTIONAL SUPPORT, REORIENT NEEDED, ADMINISTER MEDICATIONS, MONITOR SLEEP R-ALERT & ORIENTED TO PERSON, STATES SHE IS IN A HOSPITAL SOMEWHERE, YEAR IS 2019 & PRESIDENT IS LISE. PLEASANT THIS EVENING. MEMORY GAPS NOTED. PT STATED SHE IS FEELING "JUST FINE. BUT I'M TIRED TONIGHT". COMPLIANT WITH MEDS. 1 STAFF ASSIST FOR TRANSFER TO BED & TOILETING P-CONTINUE TO MONITOR.
--- NOTE | 2020-07-10 05:16 | NUR ---
PT HAS SLEPT APPROX 3 HOURS THIS THIS. NOTED TO TALK IN HER SLEEP INTERMITTENTLY.
[2020-07-10 07:58] VITALS: BP 152/60
--- NOTE | 2020-07-10 08:30 | NUR ---
Treatment Plan meeting was held this a.m. with Dr. Dickson via telephone, DRY HOUSE OPERATOR [place], RN, AT, LIEUTENANT GENERAL-S and Tissue Specialist in attendance. Plan for discharge today. Pt. is accepted to [facility]. Transportation arranged with [facility] to Transport with Market Development Trainer time 1:00 p.m.
--- NOTE | 2020-07-10 08:32 | NUR ---
DR WARD ON UNIT TO ASSESS PATIENT, UPDATE PROVIDED.
[2020-07-10] MEDS ORDERED: MEMANTINE HCL10 MG PO (09:34)
[2020-07-10] MEDS ORDERED: RISPERIDONE0.5 MG PO (09:34)
[2020-07-10] MEDS ORDERED: DULOXETINE HCL30 MG PO (09:34)
[2020-07-10] MEDS ORDERED: VITAMIN D3125 MC1 PO (09:34)
--- NOTE | 2020-07-10 11:12 | NUR ---
SPOKE TO DR HYDE TO HAVE MEDICAL MED PRESCRIPTIONS PRINTED PATIENT IS BEING DISCHARGED TODAY.
[2020-07-10] MEDS ORDERED: ZESTRIL,PRINIVIL5 MG PO (11:19)
[2020-07-10] MEDS ORDERED: LOPRESSOR50 M1 PO (11:19)
[2020-07-10] MEDS ORDERED: ALLOPURINOL300 MG PO (11:19)
[2020-07-10] MEDS ORDERED: B-121000 MCG PO (11:19)
[2020-07-10] MEDS ORDERED: LIPITOR80 MG PO (11:19)
[2020-07-10] MEDS ORDERED: FEROSUL325 MG PO (11:19)
[2020-07-10] MEDS ORDERED: ASPIRIN ADULT L81 M1 PO (11:19)
[2020-07-10] MEDS ORDERED: PROTONIX40 MG PO (11:19)
--- NOTE | 2020-07-10 11:50 | NUR ---
AM GROUP PT ATTENDED MORNING GROUP THERAPY AND PARTICIPATED BY SITTING AT A TABLE WITH PEERS AND SOCIALIZING. PT WAS CALM AND CONTENT AND EXHIBITED NO ADVERSE BEHAVIORS WHILE IN GROUP. PT IS EXPECTED TO BE DISCHARGED FROM THE UNIT THIS AFTERNOON.
--- NOTE | 2020-07-10 12:02 | NUR ---
Discharge Paperwork faxed to [facility] .
--- NOTE | 2020-07-10 12:23 | NUR ---
Notified pt's daughter Cristina Baker this AM of pt's discharge to [facility] today. Provided Cristina with update to pt's status.
--- NOTE | 2020-07-10 12:24 | NUR ---
Patient is discharging to [facility] under skilled level of care. Follow-up will be with Dr Dickson, visiting psychiatrist. While at [facility], pt's behaviors improved. Pt remained pleasantly confused. Pt participated in the programming.
--- NOTE | 2020-07-10 13:08 | NUR ---
PATIENT LEFT UNIT VIA STRETCHER WITH 2 EMT'S FROM [place] AND [facility]. PATIENT LEFT WITH ALL BELONGINGS.
--- NOTE | 2020-07-10 14:08 | NUR ---
NURSE TO NURSE REPORT GIVEN TO CURT AT [facility].
== END 2020-07-10 13:08 | DRG 885 ==
LOC: 3N 16:29
PROVIDERS: ADMIT Psychiatry & Neurology Psychiatry; ATTEND Psychiatry & Neurology Psychiatry
PROC: 0HBRXZZ Excision of Toe Nail, External Approach (ICD-10-PCS; principal; 2020-06-29)
DX: F23 Brief psychotic disorder (principal); F02.81 Dementia in other diseases classified elsewhere, unspecified severity, with behavioral disturbance; N39.0 Urinary tract infection, site not specified; G30.9 Alzheimer's disease, unspecified; I10 Essential (primary) hypertension; I89.0 Lymphedema, not elsewhere classified; S50.12XA Contusion of left forearm, initial encounter; K21.9 Gastro-esophageal reflux disease without esophagitis; E87.8 Other disorders of electrolyte and fluid balance, not elsewhere classified; E55.9 Vitamin D deficiency, unspecified; M10.9 Gout, unspecified; R73.9 Hyperglycemia, unspecified; S50.11XA Contusion of right forearm, initial encounter; E78.5 Hyperlipidemia, unspecified; Z20.828 Contact with and (suspected) exposure to other viral communicable diseases; D72.829 Elevated white blood cell count, unspecified; B35.1 Tinea unguium; I25.2 Old myocardial infarction; Z86.73 Personal history of transient ischemic attack (TIA), and cerebral infarction without residual deficits; Z88.8 Allergy status to other drugs, medicaments and biological substances; X58.XXXA Exposure to other specified factors, initial encounter; Y93.89 Activity, other specified; Y92.89 Other specified places as the place of occurrence of the external cause; Y99.8 Other external cause status